=== PATIENT | female | born 1955 | race Caucasian/White ===

== ENCOUNTER 2019-08-15 11:55 | Emergency (ER) | payer MEDICARE ==
[~2019-08-15] VITALS: Ht 157.5 cm; Wt 84.3 kg
[2019-08-15 11:58] VITALS: BP 159/69
--- NOTE | 2019-08-15 12:45 | NUR ---
PT PRESENTS TO ED WITH C/O SWOLLEN LEFT 5TH FINGER S/P INJURY 2 DAYS AGO. PT STATES SHE CANNOT GET RING OFF THIS FINGER, SEEKING TO HAVE RING CUT. CMS INTACT TO AFFECTED DIGIT. XRAY TAKEN, AWAITING RESULTS AT THIS TIME.
--- NOTE | 2019-08-15 13:20 | NUR ---
EDT at bedside to cut ring.
--- NOTE | 2019-08-15 14:12 | NUR ---
ring removed by EDT with ring cutter, pt tolerated well. pt given dc instructions and ortho referral, pt amb to dc desk with steady gait, nadn at dc.
== END 2019-08-15 14:13 | disposition home or self-care (01) ==
LOC: ED 14:00
DX: S63.619A Unspecified sprain of unspecified finger, initial encounter (principal); S60.457A Superficial foreign body of left little finger, initial encounter; W00.0XXA Fall on same level due to ice and snow, initial encounter; Y93.89 Activity, other specified; Y92.009 Unspecified place in unspecified non-institutional (private) residence as the place of occurrence of the external cause; Y99.8 Other external cause status
CPT/HCPCS: 99283